=== PATIENT | male | born 1985 | race Caucasian/White ===

== ENCOUNTER 2023-12-05 20:23 | Emergency (ER) | payer OTHER, SELFPAY ==
[2023-12-05 20:25] VITALS: BP 136/84
--- NOTE | 2023-12-05 21:17 | ED.GENMED ---
History of Present Illness
General
Chief Complaint: Musculo-Skeletal Complaint
Source: patient
Time Seen by Provider: 12/05/23 20:48
Travel History
Have you had any contact with someone who has COVID-19?: No
Do you have any symptoms of coronavirus? Fever > 100 degrees, chills, cough, shortness of breath, sore throat, loss of taste or smell, muscle aches, or headache?: No
History of Present Illness
History of Present Illness:
38-year-old male presents emergency department for evaluation of right hand injury after he punched a refrigerator earlier this evening now noting pain and swelling along the fifth metacarpal of his right hand. Patient is right-hand dominant.
Past History
Past History
ED Past Medical History: Other (Neurocardiogenic syncope ) and Other (Lyme disease with mild/pericarditis, and NSTEMI)
ED Past Surgical History: Appendectomy and Orthopedic
Social History
Tobacco: Non-smoker
Alcohol: Occasional
Drug: None
Personal: Single
Living: with family
Employment: Other (Student in culinary school )
Family History
Family History: Other (n/c)
Review of Systems
Review of Systems
All Other Systems: ROS reviewed and negative except as documented in HPI and ROS
Phy Exam
Physical Exam
Physical Exam:
GENERAL: Alert , in no apparent distress
EYE: conjunctiva clear
Head: Normocephalic atraumatic
NECK: Supple,
ENT: mmm.
LUNGS: no acute respiratory distress
NEUROLOGICAL: Alert and oriented
SKIN: Warm and dry, skin intact.
MUSCULOSKELETAL: Right hand: Moderate soft tissue swelling over the distal fifth metacarpal with tenderness in this area. Remainder of extremities within normal limits, neurovascularly intact, warm and well-perfused.
PSYCH: Normal and appropriate interaction.
Scores
Heart Failure Risk
Heart Failure Risk Score: Not Applicable
Heart Score for Chest Pain Patients
STEMI patient?: Not applicable
Withdrawal Assessment of Alcohol
Withdrawal Assessment Completed?: Not applicable
Course
Orders/Labs/Results
Orders:
Orders
12/05/23 20:27
Hand, Right 3 View [CR Hand - Right Min 3 Views] Urgent
Comment:
Reason For Exam: injury
Vital Signs
Initial and Last Documented VS:
Initial Vital Signs
Temp Pulse Resp BP Pulse Ox
98.3 F 71 16 136/84 100
12/05/23 20:25 12/05/23 20:25 12/05/23 20:25 12/05/23 20:25 12/05/23 20:25
Last Documented Vital Signs
Temp Pulse Resp BP Pulse Ox
98.3 F 71 16 136/84 100
12/05/23 20:25 12/05/23 20:25 12/05/23 20:25 12/05/23 20:25 12/05/23 20:25
Procedures
Splinting/Sling Placement
Right Hand:
Procedure completed by: Alfredo
Pre-splint extermity exam: neurovascular intact
Type of splint: ulnar gutter
Splint material: other (3in)
Normal distal neurovascular exam?: Yes
MDM/Problems Addressed
Differential Diagnosis Includes:
Boxer's fracture, contusion, sprain
MDM/Problems Addressed:
38-year-old male presenting emergency department for evaluation of right hand injury after he a refrigerator. X-ray confirms suspicion for boxer's fracture. He was placed in a 3 inch Ortho-Glass ulnar gutter splint. Provided with information for
orthopedics to follow-up with. Otherwise stable for discharge and aware of return precautions.
*Radiology
Radiology exam reviewed: preliminary read by ED provider (Distal fifth metacarpal fracture)
*Pulse Oximetry
Patient hypoxic: no
*Critical Care Note
Total Time (30-74mins, 75-104mins- exclusive of procedures): Not Applicable
ED Attending Note
-
Portions of this chart may have been created with voice recognition software.� Occasional wrong word or��sound alike� substitutions may have occurred due to the inherent limitations of voice recognition software.
Discharge Plan
Departure
Patient Disposition: Home (Routine Discharge)
Date of Disposition: 12/05/23
Time of Disposition: 21:17
Patient with high blood pressure during this ER visit?: No
Discharge Problem:
Fracture of fifth metacarpal bone of right hand
Instructions: Hand fracture
Prescriptions:
No Action
lorazepam 0.5 MG tablet
0.5 mg PO HS
gabapentin [Gabarone] 300 MG tablet
900 mg PO HS
Interventions
Interventions:
*Risk Screen - Suicide Last Done: 12/05/23 20:25
*General Assessment Last Done: 12/05/23 20:25
*Neglect/Abuse Screening Last Done: 12/05/23 20:25
ED- Fall Risk Assessment Last Done: 12/05/23 21:36
*ED COVID-19 Vaccine History Last Done: 12/05/23 21:36
*Nursing Disposition Last Done: 12/05/23 21:36
ED-Musculoskeletal Assessment Last Done: 12/05/23 21:30
Discharge Date and Time
Discharge Date/Time: 12/05/23 21:36
Print Language: FIJIAN
== END 2023-12-05 21:36 | disposition home or self-care (01) ==
LOC: EMR 20:23
PROVIDERS: EMERGENCY PHYSICIAN Emergency Medicine; FAMILY PHYSICIAN Internal Medicine Geriatric Medicine
DX: S62.306A Unspecified fracture of fifth metacarpal bone, right hand, initial encounter for closed fracture (principal); W22.01XA Walked into wall, initial encounter; I25.2 Old myocardial infarction; Z90.49 Acquired absence of other specified parts of digestive tract
CPT/HCPCS: 99283; 29125; 73130